=== PATIENT | female | born 1955 | race Caucasian/White ===

== ENCOUNTER → 2017-09-18 | Outpatient (CLI) | payer BC ==
[2017-09-18 08:59] LABS: Basophils % (A) 1 %; CH 31.9; CHCM 32.7; Eosinophils # (A) 0.1 k/uL (0-0.7); Eosinophils % (A) 1 %; HCT 44.5 % (34.0-46.0); HDW 2.23; HGB 14.6 gm/dL (11.4-16.0); Luc # (Auto) 0.07; Luc % (Auto) 1; Lymphocytes # (A) 1.9 k/uL (1.0-4.8); Lymphocytes % (A) 31 %; MCH 32.1 pg (25.0-35.0); MCHC 32.8 g/dL (31.0-37.0); MCV 97.8 fL (80.0-100.0); Mean Platelet Volume 7.1; Monocytes # (A) 0.4 k/uL (0-1.0); Monocytes % (A) 6 %; Neutrophils # (A) 3.5 k/uL (1.3-7.7); Neutrophils % (A) 60 %; RBC 4.55 m/uL (3.80-5.40); RDW 13.2 % (11.5-15.5); WBC 5.9 k/uL (3.8-10.6); WBC (Perox) 6.21
[2017-09-18 09:34] LABS: ALT 31 U/L (9-52); AST 23 U/L (14-36); Alkaline Phosphatase 86 U/L (38-126); Anion Gap 6 mmol/L; Blood Urea Nitrogen 15 mg/dL (7-17); Calcium 10.4 mg/dL (8.4-10.2); Carbon Dioxide 29 mmol/L (22-30); Chloride 108 mmol/L (98-107); Cholesterol 221 mg/dL (<200); Glucose 89 mg/dL (74-99); HDL Cholesterol 59 mg/dL (40-60); Non-African American GFR(MDRD) >60 (>60 ml/min/1.73 sqM); Potassium 4.4 mmol/L (3.5-5.1); Sodium 143 mmol/L (137-145); Total Bilirubin 0.2 mg/dL (0.2-1.3); Total Protein 6.8 g/dL (6.3-8.2)
== END | disposition home or self-care (01) ==
LOC: LABWHC1 07:31
PROVIDERS: ATTEND Family Medicine
DX: Z00.00 Encounter for general adult medical examination without abnormal findings (principal); E78.00 Pure hypercholesterolemia, unspecified; E55.9 Vitamin D deficiency, unspecified; E03.9 Hypothyroidism, unspecified
CPT/HCPCS: 36415; 80053; 80061; 82306; 84443; 85025

== ENCOUNTER → 2017-10-25 | Outpatient (CLI) | payer BC | END | disposition home or self-care (01) | LOC: LABWHC1 10:57 | PROVIDERS: ATTEND Family Medicine | DX: E83.52 Hypercalcemia (principal) | CPT/HCPCS: 36415; 83970 ==

== ENCOUNTER → 2021-03-18 | Outpatient (CLI) | payer BC ==
[2021-03-18 12:16] LABS: ALT 22 U/L (8-44); AST 18 U/L (13-35); Chol/HDL Ratio 10.17; Cholesterol 295 mg/dL (0-200); Triglycerides >1100.0 mg/dL (0.0-149.0)
== END | disposition home or self-care (01) ==
LOC: LABMAIN 08:07
PROVIDERS: ATTEND Family Medicine
DX: E78.00 Pure hypercholesterolemia, unspecified (principal)
CPT/HCPCS: 36415; 80061; 83721; 84450; 84460

== ENCOUNTER 2021-05-21 17:15 | Emergency (ER) | payer BC ==
[2021-05-21 17:32] VITALS: BP 141/94; PULSE 90; RESP 18; TEMP 98.3
--- NOTE | 2021-05-21 18:29 | ED ---
General Adult HPI - General Chief complaint: Extremity Injury, Upper Stated complaint: hand injury Time Seen by Provider: 05/21/21 17:33 Source: patient, RN notes reviewed Mode of arrival: ambulatory Limitations: no limitations - History of Present Illness Initial comments: 66-year-old female with a past medical history of hyperlipidemia presents to the emergency room for right hand pain. Patient was cleaning windows. She had the window open. She reports suddenly the window fell and closed on her hand. States that it swelled up immediately. Patient has pain in the first second and third metacarpal heads. Patient states his filling is improved. She wants to make sure nothing is fractured. She denies any other injuries.Patient has no other complaints at this time including shortness of breath, chest pain, abdominal pain, nausea or vomiting, headache, or visual changes. - Related Data Home Medications Medication Instructions Recorded Confirmed ALPRAZolam 0.5 mg PO BID PRN 05/24/15 05/27/15 Albuterol Sulfate [Ventolin HFA] 2 puff INHALATION QID PRN 05/24/15 05/27/15 Citalopram Hydrobromide [CeleXA] 20 mg PO DAILY 05/24/15 05/24/15 Fluticasone Propionate 2 spray EA NOSTRIL DAILY PRN 05/24/15 05/27/15 Ibuprofen [Motrin] 200 - 400 mg PO Q6HR PRN 05/24/15 05/27/15 Lansoprazole 30 mg PO DAILY 05/24/15 05/24/15 Levothyroxine Sodium [Synthroid] 175 mcg PO DAILY 05/24/15 05/27/15 Montelukast Sodium [Singulair] 10 mg PO HS PRN 05/24/15 05/27/15 Triamterene-Hctz 37.5-25Mg 1 each PO DAILY 05/24/15 05/27/15 [Dyazide 37.5-25 Capsule] Turmeric Root Extract [Turmeric] 450 mg PO DAILY 05/24/15 05/27/15 Aspirin 325 tab PO ONCE 05/27/15 05/27/15 Allergies Allergy/AdvReac Type Severity Reaction Status Date / Time No Known Allergies Allergy Verified 05/21/21 17:32 Review of Systems ROS Statement: Those systems with pertinent positive or pertinent negative responses have been documented in the HPI. ROS Other: All systems not noted in ROS Statement are negative. Past Medical History Past Medical History: Hyperlipidemia, Thyroid Disorder History of Any Multi-Drug Resistant Organisms: None Reported Past Surgical History: Cholecystectomy, Tubal Ligation Past Psychological History: No Psychological Hx Reported Smoking Status: Never smoker Past Alcohol Use History: None Reported Past Drug Use History: None Reported General Exam Limitations: no limitations General appearance: alert, in no apparent distress Head exam: Present: atraumatic, normocephalic, normal inspection Eye exam: Present: normal appearance, PERRL, EOMI. Absent: scleral icterus, conjunctival injection, periorbital swelling ENT exam: Present: normal exam, mucous membranes moist Neck exam: Present: normal inspection, full ROM. Absent: tenderness, meningismus, lymphadenopathy Respiratory exam: Present: normal lung sounds bilaterally. Absent: respiratory distress, wheezes, rales, rhonchi, stridor Cardiovascular Exam: Present: regular rate, normal rhythm, normal heart sounds. Absent: systolic murmur, diastolic murmur, rubs, gallop, clicks Extremities exam: Present: tenderness (Tenderness to the first second and third right hand.), normal capillary refill (Capillary refill less than 2 seconds in all digits. Radial pulse 2+.), other (Moderate edema and ecchymosis in the first second and third metacarpal heads.). Absent: full ROM (Patient has some mildly limited flexion of the first second and third fingers of the right hand at the MCP joints however mechanisms are intact.), pedal edema, joint swelling, calf tenderness Course Vital Signs 05/21/21 17:29 Temperature 98.3 F Pulse Rate 90 Respiratory 18 Rate Blood Pressure 141/94 O2 Sat by Pulse 95 Oximetry Medical Decision Making - Medical Decision Making X-ray of the left hand is negative. Patient was wrapped with an Adiel wrap. She will follow-up with orthopedics. Discussed return parameters. Discussed repeat x-ray in 7 days if symptoms persist. Disposition Clinical Impression: Contusion, hand Disposition: HOME SELF-CARE Condition: Good Instructions (If sedation given, give patient instructions): Contusion in Adults (ED) Additional Instructions: Take Motrin and Tylenol for pain. Rest ice and elevate the right hand. Follow- up with your doctor in one to 2 days. Return to the emergency room for any worsening symptoms. If symptoms do not resolve in 7 days he may need repeat x-rays. Is patient prescribed a controlled substance at d/c from ED?: No Referrals: Dewey Mays MD [Primary Care Provider] - 1-2 days Time of Disposition: 18:38
--- NOTE | 2021-05-21 18:32 | XR ---
EXAMINATION TYPE: XR hand complete RT DATE OF EXAM: 05/21/2021 COMPARISON: NONE HISTORY: Pain TECHNIQUE: 3 views FINDINGS: Metacarpals appear intact. I see no fracture nor dislocation. There is mild spurring at the DIP joints. There are no erosions. There is no subluxation. There is mild spurring at the first carp ometacarpal joint. IMPRESSION: Mild osteoarthritis. No fracture seen.
== END 2021-05-21 19:21 | disposition home or self-care (01) ==
LOC: EC 17:15
DX: S60.221A Contusion of right hand, initial encounter (principal); E78.5 Hyperlipidemia, unspecified; Z79.82 Long term (current) use of aspirin; E07.9 Disorder of thyroid, unspecified; W22.8XXA Striking against or struck by other objects, initial encounter; Y93.89 Activity, other specified
CPT/HCPCS: 99283

== ENCOUNTER → 2021-07-28 | Outpatient (CLI) | payer BC ==
[2021-07-28 17:20] LABS: Chol/HDL Ratio 5.2; LDL Cholesterol,Calculated 153.8 mg/dL (0.0-131.0); VLDL Calculation 60.2 mg/dL (5.00-40.00)
== END | disposition home or self-care (01) ==
LOC: LABWHC1 07:03
PROVIDERS: ATTEND Family Medicine
DX: U07.1 COVID-19 (principal); E78.00 Pure hypercholesterolemia, unspecified
CPT/HCPCS: 36415; 80061; 86769